=== PATIENT | female | born 1955 | race Caucasian/White ===

== ENCOUNTER 2017-07-05 08:00 | Outpatient (CLI) | payer OTHER | END 2017-07-05 08:01 | disposition home or self-care (01) | LOC: BICMAMMO 08:00 | PROVIDERS: ATTEND Family Medicine | DX: N63.20 Unspecified lump in the left breast, unspecified quadrant (principal) | CPT/HCPCS: 77066; G0279 ==

== ENCOUNTER 2020-12-22 13:22 | Inpatient (IN) | payer MEDICARE, MEDICAID ==
[2020-12-22 14:09] LABS: #Eosinphils 0.1 thou/uL (0.0-0.7); #Monocytes 0.5 thou/uL (0.11-0.59); #Neutrophils 6.4 thou/uL (1.40-6.50); %Basophils 0.4 % (0.0-1.0); %Eosinophils 0.8 % (0.0-10.0); %Lymphocytes 12.8 % (21.0-51.0); %Monocytes 6.1 % (0.0-10.0); %Neutrophils 79.9 % (42.0-75.0); Hemoglobin 11.4 g/dL (12.0-16.0); Mean Corpuscular HGB CONC 32.2 g/dL (32.0-36.0); Mean Corpuscular Hemoglobin 31.8 pg (27.0-31.0); Mean Corpuscular Volume 98.9 fL (78.0-98.0); Mean Platelet Volume 8.5 fL (7.4-10.4); Platelet Count 190 thou/uL (130-400); RBC Distribution Width 15.1 % (11.5-14.5); Red Blood Cell (RBC) Count 3.58 mill/uL (4.20-5.40); White Blood Cell (WBC) Count 8.1 thou/uL (4.8-10.8)
[2020-12-22] MEDS ORDERED: Cefepime 2 GM VIAL ONE (14:20)
[2020-12-22 14:21] LABS: Bacteria/HPF 4+ HPF (None Seen); Bilirubin 1+ (Negative); Blood, Urine Negative (Negative); Clarity Turbid (Clear); Glucose, Urine (Dipstick) Normal (Negative); Ketone, Urine Negative (Negative); Leukocyte 25 Leu/uL (Negative); Nitrite 2+ (Negative); Protein, Urine (Dipstick) 200 mg/dL (Neg-Trace); Specific Gravity, Urine 1.025 (1.002-1.036); Urobilinogen 3 mg/dL (Less than 2); pH, Urine 5.5 (5.0-9.0)
[2020-12-22 14:23] LABS: INR-International Normal Ratio 1.5; Prothrombin Time 17.8 sec (12.0-14.7)
[2020-12-22 14:24] LABS: PTT 34.6 sec (22.9-36.1)
[2020-12-22 14:41] LABS: ALT (SGPT) Less than 7 U/L (8-55); AST (SGOT) 12 U/L (5-34); Albumin 3.3 g/dL (3.4-4.8); Alkaline Phosphatase 82 U/L (40-110); Anion Gap 13 mmol/L (10-20); BUN (Urea Nitrogen) 22 mg/dL (9.8-20.1); Bilirubin, Total 0.4 mg/dL (0.2-1.2); Calc. Creatinine Clearance 0 mL/min (70-130); Calcium 9.1 mg/dL (7.8-10.44); Carbon Dioxide 26 mmol/L (23-31); Chloride 101 mmol/L (98-107); Globulin 2.9 g/dL (2.4-3.5); Glucose 106 mg/dL (80-115); Potassium 4.4 mmol/L (3.5-5.1); Protein, Total 6.2 g/dL (5.8-8.1); Sodium 136 mmol/L (136-145)
[2020-12-22] MEDS ORDERED: methylPREDNISolone Sod Succ/PF 125 MG/2 ML VIAL ONE (16:33)
[2020-12-22 16:40] LABS: Actual Bicarbonate (HCO3a) 29.1 mEq/L (22-28); Analyzer IN Cardio ER; Base Excess (BEa) 0.7 mEq/L (-2.0 to +3.0); Calcium, Ionized (arterial) 1.21 mmol/L (1.12-1.30); Carboxyhemoglobin (COHb) 2.1 gm% (0.0-3.0); Hemoglobin (Hb) 11.6 g/dL (12.0-16.0); O2 Tension (PaO2), arterial 70.7 mmHg (> 80.0); Potassium - ABG Lab 4.34 mmol/L (3.70-5.30); pH, Arterial 7.26 (7.35-7.45)
[2020-12-22 16:41] LABS: ALV-art Gradient 130.875 mmHg (0-20); CO2 Tension 66.9 mmHg (35.0-45.0); Puncture Site RBA
[2020-12-22] MEDS ORDERED: Dextrose 50% Abboject 50 ML SYRINGE SLOW IVP PRN (17:54)
[2020-12-22] MEDS ORDERED: Dextrose 5% in Water 1,000 ML IV PRN (17:54)
[2020-12-22] MEDS ORDERED: Furosemide 20 MG/2 ML VIAL SLOW IVP SCH (18:00)
[2020-12-22 18:05] LABS: Amphetamine Not Detected (NotDetected); Barbiturates Screen Not Detected (NotDetected); Benzodiazepine Screen Not Detected (NotDetected); Cocaine Metabolite Screen Not Detected (NotDetected); Medtox Control Line Valid? VALID (VALID); Medtox Reader # READER 4; Methadone Not Detected (NotDetected); Methamphetamine Not Detected (NotDetected); Opiate Screen Not Detected (NotDetected); Oxycodone Screen Not Detected (NotDetected); Phencyclidine (PCP) Not Detected (NotDetected); THC/Cannabinoid Screen Not Detected (NotDetected); Tricyclic Screen Not Detected (NotDetected)
[2020-12-22] MEDS ORDERED: HYDROcodone/Acetaminophen 7.5/325 mg Tablet PO PRN (18:34)
[2020-12-22] MEDS ORDERED: Ondansetron PF 4 MG/2 ML Vial IVP PRN (20:00)
[2020-12-22] MEDS ORDERED: Ondansetron ODT 4 MG TAB SL PRN (20:00)
[2020-12-22] MEDS ORDERED: Acetaminophen 325 MG TAB PO PRN (20:00)
[2020-12-22 20:16] VITALS: BMI 51.3
[2020-12-22] MEDS: cloNIDine 0.2 MG TAB PO SCH (20:43)
[2020-12-22] MEDS: Atorvastatin Calcium 10 MG TAB PO SCH (20:44)
[2020-12-22] MEDS: Fenofibrate Nanocrystallized 145 MG TAB PO SCH (20:44)
[2020-12-22] MEDS: Apixaban 5 MG TAB PO SCH (20:44)
[2020-12-22] MEDS: Lantus 1000 UNITS/10 ML VIAL SC SCH (22:35)
[2020-12-22] MEDS: HYDROcodone/Acetaminophen 7.5/325 mg Tablet PO PRN (22:36)
[2020-12-23] MEDS ORDERED: Cefepime 1 GM in Sodium Chloride 0.9% 100 ML IVPB SCH (02:00)
[2020-12-23] MEDS ORDERED: CEFEPIME HCL IN DEXTROSE 5 % 1 GM in Premix Bag 1 BAG IVPB SCH (02:00)
[2020-12-23 03:33] LABS: #Lymphocytes 0.5 thou/uL (1.20-3.40); #Monocytes 0.1 thou/uL (0.11-0.59); #Neutrophils 5.4 thou/uL (1.40-6.50); %Eosinophils 0.2 % (0.0-10.0); %Lymphocytes 7.9 % (21.0-51.0); %Neutrophils 90.9 % (42.0-75.0); Hemoglobin 11.9 g/dL (12.0-16.0); Mean Corpuscular HGB CONC 32.1 g/dL (32.0-36.0); Mean Corpuscular Hemoglobin 32.1 pg (27.0-31.0); Mean Corpuscular Volume 99.9 fL (78.0-98.0); Mean Platelet Volume 8.4 fL (7.4-10.4); Platelet Count 168 thou/uL (130-400); Red Blood Cell (RBC) Count 3.71 mill/uL (4.20-5.40); White Blood Cell (WBC) Count 5.9 thou/uL (4.8-10.8)
[2020-12-23 03:45] LABS: Anion Gap 13 mmol/L (10-20); BUN (Urea Nitrogen) 24 mg/dL (9.8-20.1); Calc. Creatinine Clearance 96 mL/min (70-130); Calcium 8.6 mg/dL (7.8-10.44); Carbon Dioxide 24 mmol/L (23-31); Chloride 103 mmol/L (98-107); Glucose 154 mg/dL (80-115); Potassium 5.2 mmol/L (3.5-5.1); Sodium 135 mmol/L (136-145)
[2020-12-23] MEDS: Levothyroxine Sodium 50 MCG TAB PO SCH (06:02)
[2020-12-23] MEDS: cloNIDine 0.2 MG TAB PO SCH ×3 (08:16→20:45)
[2020-12-23] MEDS: Apixaban 5 MG TAB PO SCH ×2 (08:16→20:46)
[2020-12-23] MEDS: Dronedarone HCl 400 MG TAB PO SCH ×2 (08:16→15:53)
[2020-12-23] MEDS: Aspirin 81 mg Enteric Coated Tablet PO SCH (08:16)
[2020-12-23] MEDS: methylPREDNISolone Sod Succ 40 MG VIAL IVP SCH (08:17)
[2020-12-23] MEDS: Lantus 1000 UNITS/10 ML VIAL SC SCH ×2 (08:17→20:52)
[2020-12-23] MEDS: HumaLOG 300 UNITS/3 ML VIAL SC SCH (08:23)
[2020-12-23 11:09] LABS: SARS-CoV-2 PCR by NAA Not Detected (NotDetected)
[2020-12-23] MEDS ORDERED: Dicyclomine 20 MG TAB PO SCH (17:00)
[2020-12-23] MEDS: Fenofibrate Nanocrystallized 145 MG TAB PO SCH (20:46)
[2020-12-23] MEDS: Dicyclomine 20 MG TAB PO SCH (20:46)
[2020-12-23] MEDS: Atorvastatin Calcium 10 MG TAB PO SCH (20:46)
[2020-12-23] MEDS ORDERED: Bisacodyl 10 MG SUPP PR PRN (22:00)
[2020-12-23] MEDS ORDERED: Aspirin 325 MG TAB PO SCH (22:30)
[2020-12-23 22:49] LABS: ALT (SGPT) 7 U/L (8-55); AST (SGOT) 13 U/L (5-34); Albumin 3.3 g/dL (3.4-4.8); Alkaline Phosphatase 80 U/L (40-110); Anion Gap 11 mmol/L (10-20); BUN (Urea Nitrogen) 28 mg/dL (9.8-20.1); Bilirubin, Total 0.3 mg/dL (0.2-1.2); Calc. Creatinine Clearance 96 mL/min (70-130); Calcium 9.2 mg/dL (7.8-10.44); Carbon Dioxide 31 mmol/L (23-31); Chloride 100 mmol/L (98-107); Globulin 2.7 g/dL (2.4-3.5); Glucose 110 mg/dL (80-115); Sodium 137 mmol/L (136-145)
[2020-12-23] MEDS: Polyethylene Glycol 3350 17 GM Packet PO SCH (23:19)
[2020-12-24 02:34] LABS: #Lymphocytes 1.7 thou/uL (1.20-3.40); #Monocytes 0.6 thou/uL (0.11-0.59); #Neutrophils 5.3 thou/uL (1.40-6.50); %Basophils 0.1 % (0.0-1.0); %Eosinophils 0.4 % (0.0-10.0); %Lymphocytes 21.9 % (21.0-51.0); %Monocytes 7.4 % (0.0-10.0); %Neutrophils 70.2 % (42.0-75.0); Hemoglobin 11.1 g/dL (12.0-16.0); Mean Corpuscular HGB CONC 32.2 g/dL (32.0-36.0); Mean Corpuscular Hemoglobin 31.9 pg (27.0-31.0); Mean Corpuscular Volume 98.9 fL (78.0-98.0); Mean Platelet Volume 8.4 fL (7.4-10.4); Platelet Count 205 thou/uL (130-400); Red Blood Cell (RBC) Count 3.47 mill/uL (4.20-5.40); White Blood Cell (WBC) Count 7.5 thou/uL (4.8-10.8)
[2020-12-24 03:09] LABS: Anion Gap 12 mmol/L (10-20); BUN (Urea Nitrogen) 27 mg/dL (9.8-20.1); Calc. Creatinine Clearance 102 mL/min (70-130); Calcium 8.7 mg/dL (7.8-10.44); Carbon Dioxide 27 mmol/L (23-31); Chloride 102 mmol/L (98-107); Glucose 121 mg/dL (80-115); Potassium 4.7 mmol/L (3.5-5.1); Sodium 136 mmol/L (136-145)
[2020-12-24] MEDS: Levothyroxine Sodium 50 MCG TAB PO SCH (06:19)
[2020-12-24] MEDS: HYDROcodone/Acetaminophen 7.5/325 mg Tablet PO PRN ×2 (10:32→20:27)
[2020-12-24] MEDS: Dicyclomine 20 MG TAB PO SCH ×3 (10:34→20:20)
[2020-12-24] MEDS: Dronedarone HCl 400 MG TAB PO SCH ×2 (10:34→17:26)
[2020-12-24] MEDS: cloNIDine 0.2 MG TAB PO SCH ×3 (10:34→20:20)
[2020-12-24] MEDS: Apixaban 5 MG TAB PO SCH ×2 (10:35→20:20)
[2020-12-24] MEDS: methylPREDNISolone Sod Succ 40 MG VIAL IVP SCH (10:35)
[2020-12-24] MEDS: Aspirin 81 mg Enteric Coated Tablet PO SCH (10:35)
[2020-12-24] MEDS: Lantus 1000 UNITS/10 ML VIAL SC SCH ×2 (10:41→20:33)
[2020-12-24] MEDS: HumaLOG 300 UNITS/3 ML VIAL SC SCH (10:41)
[2020-12-24] MEDS ORDERED: HumaLOG 300 UNITS/3 ML VIAL SC PRN (13:00)
[2020-12-24] MEDS ORDERED: Polyethylene Glycol 3350 17 GM Packet PO SCH (13:00)
[2020-12-24] MEDS: Atorvastatin Calcium 10 MG TAB PO SCH (20:20)
[2020-12-24] MEDS: Fenofibrate Nanocrystallized 145 MG TAB PO SCH (20:21)
[2020-12-24] MEDS ORDERED: hydrALAZINE 20 MG/ML VIAL SLOW IVP PRN (22:46)
[2020-12-24] MEDS: Polyethylene Glycol 3350 17 GM Packet PO SCH (23:16)
[2020-12-25] MEDS ORDERED: Ondansetron PF 4 MG/2 ML Vial IVP PRN (01:49)
[2020-12-25 04:08] LABS: #Lymphocytes 1.6 thou/uL (1.20-3.40); #Monocytes 0.5 thou/uL (0.11-0.59); #Neutrophils 5.3 thou/uL (1.40-6.50); %Basophils 0.1 % (0.0-1.0); %Eosinophils 0.1 % (0.0-10.0); %Lymphocytes 21.5 % (21.0-51.0); %Monocytes 6.6 % (0.0-10.0); %Neutrophils 71.6 % (42.0-75.0); Mean Corpuscular HGB CONC 32.1 g/dL (32.0-36.0); Mean Corpuscular Hemoglobin 31.5 pg (27.0-31.0); Mean Platelet Volume 8.5 fL (7.4-10.4); Platelet Count 227 thou/uL (130-400); Red Blood Cell (RBC) Count 3.82 mill/uL (4.20-5.40); White Blood Cell (WBC) Count 7.4 thou/uL (4.8-10.8)
[2020-12-25 04:27] LABS: Anion Gap 12 mmol/L (10-20); BUN (Urea Nitrogen) 23 mg/dL (9.8-20.1); Calc. Creatinine Clearance 118 mL/min (70-130); Calcium 9.3 mg/dL (7.8-10.44); Carbon Dioxide 30 mmol/L (23-31); Chloride 104 mmol/L (98-107); Potassium 4.6 mmol/L (3.5-5.1); Sodium 141 mmol/L (136-145)
[2020-12-25 04:33] LABS: Glucose 51 mg/dL (80-115)
[2020-12-25] MEDS: Levothyroxine Sodium 50 MCG TAB PO SCH (05:20)
[2020-12-25] MEDS: HumaLOG 300 UNITS/3 ML VIAL SC SCH (09:33)
[2020-12-25] MEDS: Lantus 1000 UNITS/10 ML VIAL SC SCH ×2 (09:33→20:45)
[2020-12-25] MEDS: Dronedarone HCl 400 MG TAB PO SCH ×2 (09:37→17:09)
[2020-12-25] MEDS: methylPREDNISolone Sod Succ 40 MG VIAL IVP SCH (09:37)
[2020-12-25] MEDS: Dicyclomine 20 MG TAB PO SCH ×3 (09:37→20:41)
[2020-12-25] MEDS: Aspirin 81 mg Enteric Coated Tablet PO SCH (09:37)
[2020-12-25] MEDS: Polyethylene Glycol 3350 17 GM Packet PO SCH ×2 (09:37)
[2020-12-25] MEDS: Apixaban 5 MG TAB PO SCH ×2 (09:37→20:41)
[2020-12-25] MEDS: cloNIDine 0.2 MG TAB PO SCH ×3 (09:37→20:41)
[2020-12-25] MEDS: Atorvastatin Calcium 10 MG TAB PO SCH (20:41)
[2020-12-25] MEDS: HYDROcodone/Acetaminophen 7.5/325 mg Tablet PO PRN (20:41)
[2020-12-25] MEDS: Fenofibrate Nanocrystallized 145 MG TAB PO SCH (20:41)
[2020-12-26 04:29] LABS: #Lymphocytes 1.8 thou/uL (1.20-3.40); #Monocytes 0.4 thou/uL (0.11-0.59); #Neutrophils 4.7 thou/uL (1.40-6.50); %Basophils 0.4 % (0.0-1.0); %Eosinophils 0.2 % (0.0-10.0); %Lymphocytes 25.6 % (21.0-51.0); %Monocytes 6.3 % (0.0-10.0); %Neutrophils 67.6 % (42.0-75.0); Mean Corpuscular HGB CONC 32.1 g/dL (32.0-36.0); Mean Corpuscular Hemoglobin 31.9 pg (27.0-31.0); Mean Corpuscular Volume 99.4 fL (78.0-98.0); Mean Platelet Volume 8.5 fL (7.4-10.4); Platelet Count 199 thou/uL (130-400); RBC Distribution Width 14.8 % (11.5-14.5); Red Blood Cell (RBC) Count 3.45 mill/uL (4.20-5.40); White Blood Cell (WBC) Count 6.9 thou/uL (4.8-10.8)
[2020-12-26 04:48] LABS: Anion Gap 13 mmol/L (10-20); BUN (Urea Nitrogen) 22 mg/dL (9.8-20.1); Calc. Creatinine Clearance 109 mL/min (70-130); Calcium 8.9 mg/dL (7.8-10.44); Carbon Dioxide 29 mmol/L (23-31); Chloride 103 mmol/L (98-107); Potassium 4.7 mmol/L (3.5-5.1); Sodium 140 mmol/L (136-145)
[2020-12-26 05:01] LABS: Glucose 48 mg/dL (80-115)
[2020-12-26] MEDS: Levothyroxine Sodium 50 MCG TAB PO SCH (05:09)
[2020-12-26] MEDS: Apixaban 5 MG TAB PO SCH ×2 (08:20→20:44)
[2020-12-26] MEDS: cloNIDine 0.2 MG TAB PO SCH ×3 (08:20→20:45)
[2020-12-26] MEDS: Dronedarone HCl 400 MG TAB PO SCH ×2 (08:20→16:27)
[2020-12-26] MEDS: methylPREDNISolone Sod Succ 40 MG VIAL IVP SCH (08:21)
[2020-12-26] MEDS: Polyethylene Glycol 3350 17 GM Packet PO SCH ×2 (08:21→08:22)
[2020-12-26] MEDS: Aspirin 81 mg Enteric Coated Tablet PO SCH (08:21)
[2020-12-26] MEDS: Dicyclomine 20 MG TAB PO SCH ×3 (08:21→20:45)
[2020-12-26] MEDS: Lantus 1000 UNITS/10 ML VIAL SC SCH (08:22)
[2020-12-26] MEDS: HumaLOG 300 UNITS/3 ML VIAL SC SCH (08:22)
[2020-12-26] MEDS ORDERED: Ciprofloxacin 500 MG TAB PO SCH ×2 (09:15)
[2020-12-26] MEDS: Ciprofloxacin 500 MG TAB PO SCH (20:44)
[2020-12-26] MEDS: Atorvastatin Calcium 10 MG TAB PO SCH (20:44)
[2020-12-26] MEDS: Fenofibrate Nanocrystallized 145 MG TAB PO SCH (20:45)
[2020-12-26] MEDS ORDERED: Lantus 1000 UNITS/10 ML VIAL SC SCH (21:00)
[2020-12-27 04:56] LABS: #Lymphocytes 1.9 thou/uL (1.20-3.40); #Monocytes 0.6 thou/uL (0.11-0.59); #Neutrophils 5.3 thou/uL (1.40-6.50); %Basophils 0.5 % (0.0-1.0); %Eosinophils 0.5 % (0.0-10.0); %Monocytes 7.2 % (0.0-10.0); %Neutrophils 67.7 % (42.0-75.0); Hemoglobin 11.5 g/dL (12.0-16.0); Mean Corpuscular HGB CONC 32.7 g/dL (32.0-36.0); Mean Corpuscular Hemoglobin 32.3 pg (27.0-31.0); Mean Corpuscular Volume 98.9 fL (78.0-98.0); Mean Platelet Volume 8.7 fL (7.4-10.4); Platelet Count 201 thou/uL (130-400); Red Blood Cell (RBC) Count 3.57 mill/uL (4.20-5.40); White Blood Cell (WBC) Count 7.8 thou/uL (4.8-10.8)
[2020-12-27 05:17] LABS: Anion Gap 12 mmol/L (10-20); BUN (Urea Nitrogen) 22 mg/dL (9.8-20.1); Calc. Creatinine Clearance 113 mL/min (70-130); Carbon Dioxide 31 mmol/L (23-31); Chloride 101 mmol/L (98-107); Glucose 103 mg/dL (80-115); Potassium 4.4 mmol/L (3.5-5.1); Sodium 140 mmol/L (136-145)
[2020-12-27] MEDS: Levothyroxine Sodium 50 MCG TAB PO SCH (05:54)
[2020-12-27] MEDS: Ciprofloxacin 500 MG TAB PO SCH (08:13)
[2020-12-27] MEDS: Aspirin 81 mg Enteric Coated Tablet PO SCH (08:13)
[2020-12-27] MEDS: Dicyclomine 20 MG TAB PO SCH ×2 (08:13→14:16)
[2020-12-27] MEDS: Apixaban 5 MG TAB PO SCH (08:13)
[2020-12-27] MEDS: cloNIDine 0.2 MG TAB PO SCH ×2 (08:13→14:16)
[2020-12-27] MEDS: HumaLOG 300 UNITS/3 ML VIAL SC SCH (08:14)
[2020-12-27] MEDS: Polyethylene Glycol 3350 17 GM Packet PO SCH (08:14)
[2020-12-27] MEDS: methylPREDNISolone Sod Succ 40 MG VIAL IVP SCH (08:14)
[2020-12-27] MEDS: Dronedarone HCl 400 MG TAB PO SCH ×2 (08:14→16:06)
[2020-12-27 17:02] VITALS: BP 138/92; TEMP 98.7
== END 2020-12-27 16:33 | DRG 189 ==
LOC: ERS 13:22 → IMCU/EMU 16:56 → 2NO 12-25 11:56
PROVIDERS: ADMIT Internal Medicine; ATTEND Emergency Medicine
PROC: 5A09357 Assistance with Respiratory Ventilation, Less than 24 Consecutive Hours, Continuous Positive Airway Pressure (ICD-10-PCS; principal; 2020-12-22)
DX: J96.21 Acute and chronic respiratory failure with hypoxia (principal); J44.1 Chronic obstructive pulmonary disease with (acute) exacerbation; I50.22 Chronic systolic (congestive) heart failure; N30.00 Acute cystitis without hematuria; Z68.43 Body mass index [BMI] 50.0-59.9, adult; L03.116 Cellulitis of left lower limb; N17.9 Acute kidney failure, unspecified; I42.9 Cardiomyopathy, unspecified; Z66 Do not resuscitate; Z20.822 Contact with and (suspected) exposure to COVID-19; B96.20 Unspecified Escherichia coli [E. coli] as the cause of diseases classified elsewhere; J96.22 Acute and chronic respiratory failure with hypercapnia; I48.0 Paroxysmal atrial fibrillation; F17.210 Nicotine dependence, cigarettes, uncomplicated; I11.0 Hypertensive heart disease with heart failure; E11.9 Type 2 diabetes mellitus without complications; E66.9 Obesity, unspecified; D64.9 Anemia, unspecified; K58.9 Irritable bowel syndrome, unspecified; Z71.6 Tobacco abuse counseling; Z88.1 Allergy status to other antibiotic agents; Z99.81 Dependence on supplemental oxygen; Z28.21 Immunization not carried out because of patient refusal; Z88.5 Allergy status to narcotic agent; Z79.899 Other long term (current) drug therapy; Z79.82 Long term (current) use of aspirin; Z79.4 Long term (current) use of insulin; Z79.890 Hormone replacement therapy; Z82.49 Family history of ischemic heart disease and other diseases of the circulatory system; Z86.010 Personal history of colon polyps; Z90.49 Acquired absence of other specified parts of digestive tract; Z90.710 Acquired absence of both cervix and uterus; Z98.890 Other specified postprocedural states
CPT/HCPCS: 36415; 36416; 36600; 51701; 71045; 80048; 80053; 80306; 80307; 81003; 81015; 82805; 83605; 84484; 85025; 85610; 85730; 87040; 87077; 87086; 87186; 93005; 93010; 93306; 94660; 96365; 96366; 96367; 96374; 99292; J0360; J0692; J1815; J1940; J1956; J2405; J2920; J2930; U0003; U0005